=== PATIENT | female | born 1965 | race African-American/Black ===

== ENCOUNTER 2017-06-05 07:08 | Inpatient (IN) | payer BC ==
[~2017-06-05 07:08] MED LIST: Buffered Lidocaine 0.9% SYRIN* 5 ML/SYR SYRINGE INTRADERM ONE; Buffered Lidocaine 0.9% SYRIN* 5 ML/SYR SYRINGE ONE; Dexamethasone IV* 4 MG/ML 1 ML (4 MG) IV SLOW PU ONE; Dexamethasone IV* 4 MG/ML 1 ML (4 MG) ONE; Famotidine IV* 10 MG/ML 2 ML (20 mg) IV ONE; Famotidine IV* 10 MG/ML 2 ML (20 mg) ONE; Scopolamine 1.5 mg* PATCH ONE; Scopolamine 1.5 mg* PATCH TRANSDERM ONE; ceFAZolin 2 GM PREMIX (*) 2 GM/50 ML BAG IVPB ONE
[2017-06-05] MEDS ORDERED: Propofol* 10 MG/ML 20 ML BTL IV PUSH ONE ×2 (09:04→11:39)
[2017-06-05] MEDS ORDERED: fentaNYL* 50 MCG/ML 5 ML VIAL (250 MCG VIAL) ONE (09:04)
[2017-06-05] MEDS ORDERED: Midazolam* 1 MG/ML 5 ML VIAL (5 MG) ONE (09:04)
[2017-06-05] MEDS ORDERED: Lidocaine 2% PF * 5 ML VIAL ONE (09:04)
[2017-06-05] MEDS ORDERED: ROPIVACAINE 5 MG/ML 30 ML BTL (0.5%) ONE (09:05)
[2017-06-05] MEDS ORDERED: KETAMINE HCL* 50 MG/ML 10 ML VIAL ONE (10:16)
[2017-06-05] MEDS ORDERED: Phenylephrine IV* 40 MCG/ML 10 ML SYRINGE ONE (10:23)
[2017-06-05] MEDS ORDERED: fentaNYL* 50 MCG/ML 2 ML VIAL (100 MCG VIAL) ONE ×3 (10:46→13:43)
[2017-06-05] MEDS ORDERED: PROCHLORPERAZINE INJ 5 MG/ML 2 ML VIAL IV PRN (11:13)
[2017-06-05] MEDS ORDERED: oxyCODONE TAB* 5 MG TAB PO PRN (11:13)
[2017-06-05] MEDS ORDERED: Acetaminophen IV 1GM/100ML * 1,000 MG/100 ML VIAL IVPB ONE (11:16)
[2017-06-05] MEDS ORDERED: Ondansetron INJ* 2 MG/ML VIAL ONE (12:29)
[2017-06-05] MEDS ORDERED: Bupivacaine 0.5% SDV PF* 30 ML VIAL ONE (12:34)
[2017-06-05] MEDS ORDERED: Lidocaine 1% MPF wEPI 200,000* 30 ML SDV ONE (12:34)
[2017-06-05] MEDS ORDERED: Bisacodyl SUPP* 10 MG SUPP PR PRN (13:29)
[2017-06-05] MEDS ORDERED: oxyCODONE/Acetamin 5/325 MG* TAB PO PRN (13:29)
[2017-06-05] MEDS ORDERED: Ondansetron INJ* 2 MG/ML VIAL IV PRN (13:29)
[2017-06-05] MEDS ORDERED: Magnesium Hydroxide LIQ* 30 ML UDC PO PRN (13:29)
[2017-06-05] MEDS ORDERED: Acetaminophen TAB* 325 MG PO PRN (13:29)
[2017-06-05] MEDS ORDERED: diPHENhydraMINE PO* 25 MG PO PRN (13:29)
[2017-06-05] MEDS ORDERED: Acetaminophen IV 1GM/100ML * 100 ML ONE (13:43)
[2017-06-05] MEDS ORDERED: HYDROmorphone INJ* 1 MG/ML CARPUJECT SYRINGE ONE (13:43)
[2017-06-05] MEDS: HYDROmorphone INJ* 1 MG/ML CARPUJECT SYRINGE IV PRN ×2 (13:49→14:20)
[2017-06-05] MEDS ORDERED: Diazepam TAB(*) 5 MG PO PRN (13:50)
[2017-06-05] MEDS: fentaNYL* 50 MCG/ML 2 ML VIAL (100 MCG VIAL) IV PRN ×2 (13:51→14:26)
[2017-06-05] MEDS ORDERED: oxyCODONE TAB* 5 MG TAB ONE (14:23)
--- NOTE | 2017-06-05 14:45 | RAD ---
Indication: Immediate postop exam following LEFT total knee replacement. Comparison: No relevant prior exams available on the [facility] P[facility] for comparison. Technique: Portable AP and cross table lateral views LEFT knee. Report: Status post total knee replacement. Post-op fluid and gas is seen in the joint space and anterior subcutaneous tissues. Alignment is anatomic. No periprosthetic fracture evident. IMPRESSION: Unremarkable immediate postoperative appearance following LEFT knee replacement.
[2017-06-05] MEDS: ceFAZolin 1 GM VIAL(*) 1 GM in NS 0.9% 50 ML* 50 ML IVPB SCH ×2 (16:30→23:56)
[2017-06-05] MEDS: oxyCODONE/Acetamin 5/325 MG* TAB PO PRN ×2 (17:55→23:53)
[2017-06-05] MEDS: Docusate CAP* 100 MG PO SCH (20:20)
[2017-06-05] MEDS: Morphine INJ* 2 MG/ML 1 ML SYRINGE (TWO MG - NEW SYRINGE VERSION) IV PRN (22:28)
[2017-06-06] MEDS: oxyCODONE/Acetamin 5/325 MG* TAB PO PRN ×5 (04:07→21:08)
[2017-06-06] MEDS: Docusate CAP* 100 MG PO SCH ×2 (08:31→21:08)
[2017-06-06] MEDS: Cholecalciferol TAB* 1000 UNITS PO SCH (08:31)
[2017-06-06] MEDS: Vitamin THERAPEUTIC TAB PO SCH (08:31)
[2017-06-06] MEDS: Hydrochlorothiazide TAB* 25 MG PO SCH (08:31)
[2017-06-06] MEDS: Potassium Chlor TAB* 20 MEQ TAB.ER PO SCH (08:31)
[2017-06-06] MEDS: Cyanocobalamin TAB* 500 MCG PO SCH (08:31)
[2017-06-06] MEDS: Apixaban* 2.5 MG TAB PO SCH ×2 (08:31→21:08)
[2017-06-06] MEDS: ceFAZolin 1 GM VIAL(*) 1 GM in NS 0.9% 50 ML* 50 ML IVPB SCH (08:35)
[2017-06-06 08:38] LABS: Hematocrit 31 % (35-47); Hemoglobin 10.2 g/dl (12.0-16.0)
--- NOTE | 2017-06-06 08:42 | PN ---
Progress Note - Progress Note Date of Service: 06/06/17 SOAP: Subjective: patient sitting up in bed with minimal complaints of pain Objective: Vital Signs Temp Pulse Resp BP Pulse Ox 99.4 F 71 18 122/69 93 06/06/17 07:33 06/06/17 07:33 06/06/17 08:33 06/06/17 07:33 06/06/17 07:33 Laboratory Last Values Hgb 10.2 g/dl (12.0-16.0) L 06/06/17 07:56 Hct 31 % (35-47) L 06/06/17 07:56 APTT 37.5 seconds (26.0-36.3) H 06/05/17 07:35 incision: c/d/i PE: intact B/L LE strengths, 2+ DP pulses and intact sensation Assessment: s/p left TKA; POD#1 Plan: 1) Continue PT/OT- WBAT 2) Continue Abx for 24 hours post-op 3) continue DVT prophylaxis 4) Home tomorrow or Thursday <Olinda Ku - Last Filed: 06/06/17 08:39> - Progress Note SOAP: Subjective: Patient just worked out with PT. She is happy with her progress. Some incontinence of urine noted by patient and her nurse. Objective: LLE: - dressing c/d/i - NVID x-rays postop- excellent alignment of hardware Assessment: POD 1 L TKA Plan: - PT, OOB, WBAT - Abx x 24 hours postop - Eliquis - Home Thursday or Thursday depending on when she is safe per PT <Yoav Poe - Last Filed: 06/06/17 16:09>
[2017-06-06 08:55] LABS: BUN/Creatinine Ratio 10.8 (8-20); Calcium 8.8 mg/dL (8.6-10.3); EGFR African American 124.6 (>60); EGFR Non-African American 96.9 (>60); Potassium 3.2 mmol/L (3.5-5.0)
[2017-06-06] MEDS: Morphine INJ* 2 MG/ML 1 ML SYRINGE (TWO MG - NEW SYRINGE VERSION) IV PRN (15:26)
[2017-06-07] MEDS: oxyCODONE/Acetamin 5/325 MG* TAB PO PRN ×2 (02:28→08:10)
[2017-06-07 04:57] LABS: Hematocrit 30 % (35-47); Hemoglobin 10.1 g/dl (12.0-16.0)
[2017-06-07 08:08] VITALS: BP 150/84
--- NOTE | 2017-06-07 08:27 | PN ---
Progress Note - Progress Note Date of Service: 06/07/17 SOAP: Subjective: patient sitting up in bed with minimal complaints of pain Objective: Vital Signs Temp Pulse Resp BP Pulse Ox 98.7 F 97 18 150/84 99 06/07/17 07:43 06/07/17 07:43 06/07/17 08:10 06/07/17 07:43 06/07/17 07:43 Laboratory Last Values Hgb 10.1 g/dl (12.0-16.0) L 06/07/17 04:49 Hct 30 % (35-47) L 06/07/17 04:49 APTT 37.5 seconds (26.0-36.3) H 06/05/17 07:35 Sodium 137 mmol/L (133-145) 06/06/17 07:55 Potassium 3.2 mmol/L (3.5-5.0) L 06/06/17 07:55 Chloride 100 mmol/L (101-111) L 06/06/17 07:55 Carbon Dioxide 30 mmol/L (22-32) 06/06/17 07:55 Anion Gap 7 mmol/L (2-11) 06/06/17 07:55 BUN 7 mg/dL (6-24) 06/06/17 07:55 Creatinine 0.65 mg/dL (0.51-0.95) 06/06/17 07:55 Est GFR ( Amer) 124.6 (>60) 06/06/17 07:55 Est GFR (Non-Af Amer) 96.9 (>60) 06/06/17 07:55 BUN/Creatinine Ratio 10.8 (8-20) 06/06/17 07:55 Glucose 98 mg/dL (70-100) 06/06/17 07:55 Calcium 8.8 mg/dL (8.6-10.3) 06/06/17 07:55 incision: c/d; dressing changed PE: NVI Assessment: s/p left TKA Plan: 1) Eliquis for DVT prophylaxis 2) PT/OT- WBAT 3) Home today; F/U with Deepika in 2 weeks
[2017-06-07] MEDS: Apixaban* 2.5 MG TAB PO SCH (08:59)
[2017-06-07] MEDS: Docusate CAP* 100 MG PO SCH (08:59)
[2017-06-07] MEDS: Potassium Chlor TAB* 20 MEQ TAB.ER PO SCH (08:59)
[2017-06-07] MEDS: Cyanocobalamin TAB* 500 MCG PO SCH (08:59)
[2017-06-07] MEDS: Cholecalciferol TAB* 1000 UNITS PO SCH (08:59)
[2017-06-07] MEDS: Vitamin THERAPEUTIC TAB PO SCH (08:59)
[2017-06-07] MEDS: Hydrochlorothiazide TAB* 25 MG PO SCH (08:59)
[2017-06-07] MEDS: Morphine INJ* 2 MG/ML 1 ML SYRINGE (TWO MG - NEW SYRINGE VERSION) IV PRN (09:41)
--- NOTE | 2017-06-07 10:07 | DS ---
DISCHARGE SUMMARY: DATE OF ADMISSION: 06/05/17 DATE OF DISCHARGE: 06/07/17 SURGEON: Dr. Yoav Poe * (DICTATED BY JOSE MARTIN COLLINS) PRINCIPAL DIAGNOSIS: Severe endstage osteoarthritis of the left knee. DISCHARGE DIAGNOSIS: Severe endstage osteoarthritis of the left knee. HISTORY OF PRESENT ILLNESS: Ms. Nieto is a 51-year-old female with complaints of left knee pain secondary to end-stage osteoarthritis. She has failed conservative management and elected to proceed with a left total knee arthroplasty. HOSPITAL COURSE: Ms. Nieto is a 51-year-old female who was admitted electively to the hospital on 06/05/17 and underwent a left total knee arthroplasty. She tolerated the procedure well with no complications. Postoperatively, she was placed on Eliquis 2.5 mg for DVT prophylaxis. Her hospital course was unremarkable. On postoperative day 1, her H and H was 10 and 31. On postoperative day 2, at 10 and 30. At the time of discharge, on 07/12, she was afebrile. She is ambulating with the aid of a walker and her incision was clean and dry. She was discharged home in stable condition. DISCHARGE MEDICATIONS: 1. Percocet 5/325 one to two tabs every 4 to 6 hours as needed for pain. 2. Colace 100 mg 2 to 3 tabs daily. 3. Eliquis 2.5 mg daily for 4 weeks. 4. Vitamin D. 5. Vitamin B12. 6. Hydrochlorothiazide 25 mg daily. 7. Potassium chloride 20 mEq daily. PHYSICAL EXAM UPON DISCHARGE: She was afebrile. Her vital signs were stable. Her wound was clean and dry and healing well. She was distally neurovascularly intact. She was ambulating well with the aid of a walker. DISCHARGE INSTRUCTIONS: She was discharged to home. She is weightbearing as tolerated. Dr. Poe has recommended outpatient physical therapy to start next week and a prescription was provided. She will take Eliquis 2.5 mg daily for 4 weeks. She was given a prescription for Percocet 5/325 to take 1 to 2 tabs every 4 to 6 hours as needed for pain as well as Colace for her constipation. She will follow up with her Dr. Poe in 10 to 14 days. She was asked to call our office sooner if any questions or concerns. JOSE MARTIN COLLINS [id number]/[facility] #: [id number] [place]
--- NOTE | 2017-06-08 05:00 | OP ---
DATE OF OPERATION: 06/05/17 - ROOM #339 DATE OF : 69 SURGEON: Yoav Poe MD RENTAL SALES ASSOCIATE: JOSE MARTIN Mendez. A physician high school assistant football coach was required for the length of the procedure for positioning, retraction, and instrumentation. ANESTHESIOLOGIST: Otto Magallanes MD ANESTHESIA: General anesthesia, regional adductor tunnel block anesthesia. Local anesthesia, approximately 20 cc of a 1:1 ratio of lidocaine 1.5% with epinephrine and Marcaine 0.5% without epinephrine. PRE-OP DIAGNOSIS: Left knee osteoarthritis. POST-OP DIAGNOSIS: Left knee osteoarthritis. OPERATIVE PROCEDURE: Left total knee arthroplasty. ANTIBIOTICS: Ancef 2 g IV. IV FLUIDS: 2100 cc crystalloid. URINE OUTPUT: 600 cc. TOURNIQUET TIME: 119 minutes at 300 mmHg. COMPLICATIONS: None. EBL: Less than 200cc. SPECIMEN: Bone removed from femur and tibia. IMPLANTS: Attune Yoel and Yoel cruciate retaining knee system, femur size 4, tibia size 3, patella size 32 mm, tibial insert 10 mm. Simplex bone cement from [employer] used. 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 The patient had been a former patient of Dr. Jin for a long time and I have followed her in 2017. As detailed in my history and physical on prior clinic notes, the patient responded insufficiently to nonoperative management over multiple years. The patient was having trouble just walking normally for many months. She had long since stopped walking up and down stairs normally. Her range of motion was significantly limited in clinic. With my most recent exam getting 75 degrees of flexion only. The patient and I talked at several clinic visits about our preference to delay arthroplasty surgery until an older age due to higher failure rates with younger patient. However, the significant disability with which the patient has been living forced the issue of surgery. She had responded insufficiently to the full spectrum of nonoperative management and so she opted for knee arthroplasty. Preoperatively, I discussed risks and potential complications of surgery including bleeding, infection, nerve or blood vessel injury, blood clot, knee pain, stiffness, hardware failure, need for revision surgery. The patient is a former smoker who quit in 2013, although admitted recent smoking. I discouraged smoking and spoke to her about improved healing when not smoking, soft tissue and bone. DESCRIPTION OF PROCEDURE: Preoperative written consent was obtained. Operative extremity was marked in preoperative holding. The patient was brought back to the operating room and placed supine on operating room table. The patient was sedated and adductor canal block was placed. This took some time. The patient then had general anesthesia placed. A proximal left thigh tourniquet was placed but not yet elevated. A lateral thigh post was placed to keep the lower extremity in neutral orientation. The lower extremity was prepped with chlorhexidine and then with ChloraPrep. The left lower extremity was draped. The [facility] knee positioner system was installed. Surgical time-out was performed. Esmarch was applied and the tourniquet was elevated to 300 mmHg. Anterior midline longitudinal skin incision was made from 4 fingerbreadths proximal to the proximal pole of patella to the distal end of the tibial tuberosity. This incision was carried through the subcutaneous tissue using a different knife blade. I continued the dissection down to the extensor mechanism. I cleaned off my planned medial parapatellar arthrotomy incision. I marked that planned incision with a marker. I then made it with the knee in approximately 70 degrees of flexion. Distally, I carried it through the anterior horn of the medial meniscus. A joint fluid was evacuated. I then extended the knee fully, and using Bovie electrocautery, peeled some knee capsule off the anterior aspect of the medial tibial plateau and then lateral tibial plateau. I then used a curved 3.8-inch osteotome to continue the dissection about the medial tibial plateau subperiosteally. I next removed much, but not all of the fat deep to the patella tendon. I released some of the lateral patellofemoral ligaments. The patella was able to rommel easily. I had also removed some osteophytes from the patella. At this point, with the knee in extension, I also removed some synovitis in the suprapatellar pouch. There is no significant bleeding. Looking at the compartments of the knee, there were significant osteophytes about the periphery of the medial and lateral femoral condyle. There is significant wear of the patellar femoral compartments. The medial tibial plateau was the low side of the tibial plateau. Retractors were placed, ACL was incised and remnants of the ACL were removed. Osteophytes were removed from the intracondylar notch. I identified a point just medial to the center point from medial to lateral on the femur and I drilled the femoral canal with my drill set on ream. Distal femoral cutting guide was placed. I made a cut in 5 degrees of valgus and 9 mm of length. Instruments were then removed. I next sized the femur to a 4. A four-in-one cutting guide was placed, anterior cut, posterior cut, anterior chamfer cut and posterior chamfer cuts were made. Anterior chamfer bone was kept for later use. Instruments were removed. I used a rasp to rasp the center part of the anterior chamfer cut per Attune technique. I next addressed the tibia. I marked with a marking pen, the 2nd metatarsal, the midpoint in the talus, the tibial crest and the tibial tuberosity medial third. External tibial cutting guide was placed. I tried to match the slope of the proximal tibia. This was just over 7.5 degrees of posterior slope, matching [place] anatomy. The medial side was the low side and I took 3 mm exactly off of the medial side. This level would just barely remove a mm or two most peripherally. The guide was pinned twice. I next placed an alignment alfa and placed a third pin. I next placed 4 retractors and using the slotted guide, I cut my proximal tibia with an oscillating saw. Tibial bone block removed measuring 1 to 2 mm in its thinnest medially. It measured 10 mm at its widest laterally. I noted at this point, that the knee seemed slightly loose and I suspected that we would be using a larger insert rather than a thinner insert of polyethylene, at the end of the case. I next removed the menisci with Bovie electrocautery. I next placed Dogbone spacers that confirmed the equality of the flexion and extension gaps, although both were large, at least 7mm. I placed the alignment alfa through the spacer and confirmed the good orientation of my tibia bone cut in the coronal plane. I next placed my size 4 trial on the femur. I drilled through it. I next, using the float technique determined the proper orientation of the tibial implant. I marked that with Bovie electrocautery on the tibia. I next placed retractors and sized the tibia. I had removed some medial osteophytes that were somewhat significant at various parts earlier in the case. The tibia sized to a 3. While there was just a little bit of bone medial and lateral, that was definitely the largest size that could be fit from anterior to posterior. I used both the medial third of the tibial tuberosity and the float technique determine position as well as the fit to the bone to determine the orientation rotationally of my tibial component. I pinned the tibial trial in place and then reamed and punched the tibia. Removed instruments. I next fully extended the knee and everted the patella. I measured a patellar depth of 22 to 23 mm. Using freehand technique, I removed the undersurface of the patella, such that it was approximately a 13 to 14 mm deep. I sized the patella to a 32, placed 3 holes and trialed by button, I next placed all trials and trialed the knee. The patellar tracked nicely. I used various sizes inserts and I liked my soft tissue and my bony balance. The knee was irrigated. Anterior chamfer cut from previously was stuck into the femoral canal. Bone was well irrigated and then dried with sponges. Cement was mixed. Cement and then implants were applied to the tibia, then the femur. A trial 7 mm insert was placed and the knee was fully extended. The patella was also put into place, implants, cemented. I waited for the cement to fully harden and then some. We then trialed several different trial insert sizes. We were choosing between 8 and 10 mm. Ultimately I decided on 10 mm. The knee was able to comfortably fully extend. Range of motion was at least 0 to 110 degrees with trial insert in place. Knee flexion was limited by cast to the thigh contact. Final 10 mm tibial insert was placed. Irrigation. Tourniquet was dropped. There was not much bleeding. Irrigation. With the knee in approximately 30 degrees of flexion, I closed the parapatellar arthrotomy with [id number] stitches with Vicryl 0 suture. I also placed 3 [id number] stitches using Ethibond 0 suture. Irrigation. Closed subcutaneous tissue with buried simple stitches using Vicryl 2.0 suture. Closure of the skin, per the patient's request with running stitches using nylon 4.0 suture. Xeroform, 4x4s, ABDs, sterile Webril. Yury bandage from foot to proximal thigh. The patient was awakened and transferred to the PACU. DISPOSITION: The patient was admitted postoperatively for physical therapy, pain control, medical management. The patient will be on Eliquis 2.5 mm by mouth twice daily for 4 weeks postoperatively. The patient has a family history , her sister, of a DVT and PE. The patient will receive Percocet as needed for pain control. The patient was to get Ancef 1 g IV q.8 hours x24 hours postoperatively. The patient will work with physical therapy postoperatively. Early in the morning on postoperative day 1, she will do outpatient physical therapy to work on strengthening and range of motion. X-rays were obtained in the PACU, which showed excellent position of hardware and no fracture. The patient had a range of motion under anesthesia prior to the commencement of the operation of 0 to 110 degrees. Range of motion after the implants were inserted was at least 0 to 110 degrees and I hope that she will obtain that postoperatively. [id number]/[facility] #: [id number] MTDD
[2017-06-08] MEDS ORDERED: Scopolamine PATCH Remove* 1 NOTE MISC PATCH OFF ONE (06:00)
== END 2017-06-07 09:55 | disposition home or self-care (01) | DRG 302 ==
LOC: AA 07:08 → SSU 15:02
PROVIDERS: ADMIT Orthopaedic Surgery; ATTEND Orthopaedic Surgery
PROC: 0SRD0J9 Replacement of Left Knee Joint with Synthetic Substitute, Cemented, Open Approach (ICD-10-PCS; principal; 2017-06-05 08:15)
DX: M17.12 Unilateral primary osteoarthritis, left knee (principal); F17.210 Nicotine dependence, cigarettes, uncomplicated; M25.762 Osteophyte, left knee; I10 Essential (primary) hypertension; Z79.899 Other long term (current) drug therapy
CPT/HCPCS: 36415; 80048; 81025; 85014; 85018; 85730; 87086; 94760; A9270-GY; C1776; J0690; J1100; J1170; J2001; J2250; J2270; J2405; J2704; J2795; J3010

== ENCOUNTER 2022-04-07 05:51 | Observation (INO) ==
[2022-04-07] MEDS ORDERED: ceFAZolin 2 GM in NS PREMIX 2 GM/100 ML BAG IVPB ONE (05:56)
[2022-04-07] MEDS ORDERED: Lactated Ringers 1000 ml BAG 1,000 ML IV SCH ×2 (06:00→11:00)
[2022-04-07] MEDS ORDERED: Buffered Lidocaine 1% SYRIN 1 ml INTRADERM ONE (06:00)
[2022-04-07] MEDS ORDERED: Famotidine IV 10 MG/ML 2 ml VIAL (20 mg) IV ONE (06:00)
[2022-04-07] MEDS ORDERED: Famotidine IV 10 MG/ML 2 ml VIAL (20 mg) ONE (06:09)
[2022-04-07] MEDS ORDERED: Vancomycin 1,000 MG VIAL ONE (07:06)
[2022-04-07] MEDS ORDERED: ROPIVACAINE 5 MG/ML 30 ML BTL (0.5%) ONE (07:20)
[2022-04-07] MEDS ORDERED: fentaNYL 100 mcg/2 ml 50 MCG/ML VIAL ONE (07:20)
[2022-04-07] MEDS ORDERED: Dexamethasone IV 4 MG/ML VIAL 1 ml VIAL ONE (07:20)
[2022-04-07] MEDS ORDERED: Midazolam 2 mg/2 ml VIAL 1 mg/ml 2 ml VIAL (2 mg) ONE (07:20)
[2022-04-07] MEDS ORDERED: Phenylephrine 40 mcg/mL 10mL (400mcg) SYRINGE ONE (08:02)
[2022-04-07] MEDS ORDERED: Propofol 10 MG/ML 20 ML BTL ONE ×5 (08:09→09:37)
[2022-04-07] MEDS ORDERED: Lidocaine 2% PF 5 ML VIAL ONE (08:09)
[2022-04-07] MEDS ORDERED: Acetaminophen IV 1 GM/100ML 1,000 MG/100 ML BAG IV ONE (08:10)
[2022-04-07] MEDS ORDERED: Ondansetron 4 mg VIAL 2 MG/ML 2 ml VIAL IV PRN ×2 (08:12→10:39)
[2022-04-07] MEDS ORDERED: Prochlorperazine 5 mg/ml 2 ml VIAL (10 mg) IV PRN (08:12)
[2022-04-07] MEDS ORDERED: Naloxone 0.4 mg VIAL 0.4 mg/ml 1 ml VIAL IV PRN (08:12)
[2022-04-07] MEDS ORDERED: fentaNYL 100 mcg/2 ml 50 MCG/ML VIAL IV PRN (08:12)
[2022-04-07] MEDS ORDERED: Morphine 2 MG/ML SYRINGE IV PRN (10:39)
[2022-04-07] MEDS ORDERED: Ondansetron ODT 4 mg TAB 4 MG TAB PO PRN (10:39)
[2022-04-07] MEDS ORDERED: Magnesium Hydroxide LIQ 30 ML UDC PO PRN (10:39)
[2022-04-07] MEDS ORDERED: Lactulose 30 ml UDC PO PRN (10:39)
[2022-04-07 15:49] VITALS: BP 160/96
[2022-04-07] MEDS ORDERED: ceFAZolin 1 GM ADVAN 1 GM in NS 0.9% 50 ML 50 ML IVPB SCH (16:00)
[2022-04-07] MEDS ORDERED: Magnesium Hydroxide LIQ 30 ML UDC PO SCH (21:00)
[2022-04-07] MEDS ORDERED: Nitrofurantoin (monohydrate/macrocrystals) 100 mg CAP PO SCH (21:00)
[2022-04-08] MEDS ORDERED: Cholecalciferol (VIT D3) 1,000 unit TAB PO SCH (09:00)
[2022-04-08] MEDS ORDERED: Vitamin THERAPEUTIC TAB PO SCH (09:00)
== END 2022-04-07 17:10 | disposition home or self-care (01) ==
LOC: INTOOBSV 05:51 → AA 05:51 → SSU 12:00
PROVIDERS: ADMIT Orthopaedic Surgery; ATTEND Orthopaedic Surgery